=== PATIENT | female | born 1985 | race Caucasian/White ===

== ENCOUNTER 2016-10-19 08:42 | Emergency (ER) | payer OTHER, SELFPAY ==
[2016-10-19] MEDS ORDERED: MORPHINE 4 MG/ML 1ML SYRINGE IV ONE (09:15)
[2016-10-19] MEDS ORDERED: KETOROLAC 30 MG/ML VIAL (J1885) IV ONE (09:15)
[2016-10-19] MEDS ORDERED: MORPHINE 2 MG/ML 1ML SYRINGE IV PRN (09:15)
[2016-10-19] MEDS ORDERED: ONDANSETRON 4MG/2ML VIAL (J2405) IV ONE (09:15)
[2016-10-19] MEDS ORDERED: NS 1,000 ML IV ONE (09:15)
[2016-10-19 09:49] LABS: BASO % 0.3 % (0.0-1.0); EOS # 0.1 K/mm3 (0.0-0.50); EOS % 1.7 % (0.0-3.0); LARGE UNSTAINED CELL # 0.2 K/mm3 (0.0-0.4); LARGE UNSTAINED CELL % 2.9 % (0.0-4.0); LYMPH % 26.9 % (24.0-44.0); MEAN CORPUSCULAR HGB CONC 33.1 g/dl (32.0-36.5); MEAN CORPUSCULAR VOLUME 90.8 fl (80.0-96.0); MONO # 0.6 K/mm3 (0.0-0.8); MONO % 8.7 % (0.0-5.0); NEUTROPHILS % 59.5 % (36.0-66.0); PLATELET COUNT, AUTOMATED 236 k/mm3 (150-450); RED CELL DISTRIBUTION WIDTH 11.8 % (11.5-14.5); WHITE BLOOD COUNT 6.8 K/mm3 (4.0-10.0)
[2016-10-19 10:23] LABS: ALBUMIN 4.2 GM/DL (3.2-5.2); ALKALINE PHOSPHATASE 46 U/L (45-117); ALT/SGPT 23 U/L (12-78); AMYLASE 69 U/L (25-115); ANION GAP 8 MEQ/L (8-16); AST/SGOT 13 U/L (15-37); BILIRUBIN,DIRECT < 0.1 MG/DL (0.0-0.2); BILIRUBIN,TOTAL 0.3 MG/DL (0.2-1.0); BLOOD UREA NITROGEN 16 MG/DL (7-18); CALCIUM LEVEL 8.4 MG/DL (8.5-10.1); CARBON DIOXIDE LEVEL 27 MEQ/L (21-32); CHLORIDE LEVEL 105 MEQ/L (98-107); CREATININE FOR GFR 0.74 MG/DL (0.55-1.02); GLOMERULAR FILTRATION RATE > 60.0 (>60); GLUCOSE, FASTING 90 MG/DL (70-105); POTASSIUM SERUM 3.9 MEQ/L (3.5-5.1); SODIUM LEVEL 140 MEQ/L (136-145); TOTAL PROTEIN 7.7 GM/DL (6.4-8.2)
[2016-10-19 10:27] LABS: CONTROL LINE HCG INT CTR LINE PRESENT
[2016-10-19] MEDS ORDERED: BACTRIM 160MG/800MG DS TAB PO ONE (10:45)
[2016-10-19] MEDS ORDERED: PERCOCET 5MG/325MG TAB PO ONE (10:45)
--- NOTE | 2016-10-19 10:45 | REP ---
CT abdomen pelvis without IV or bowel contrast: Comparison is 11/02/2015. On the comparison study there were three right renal calculi. On the study today there are two right renal calculi. There is mild right hydronephrosis and right hydroureter. There is no right ureteral calculus, however, there is a calculus in the urinary bladder along its posterior wall to the left of midline. This could be a calculus recently passed from the distal right ureter. The remaining mild hydronephrosis could be from spasm of the distal right ureter. There are no left renal calculi are no left ureteral calculi. This is unchanged from the prior study. The visualized lung robertson are unremarkable. The unenhanced hepatic parenchyma, gallbladder, pancreas and spleen are unremarkable. The adrenals are unremarkable. The abdominal aorta, bowel and mesentery are unremarkable. Pelvis: The appendix is unremarkable. Uterus and adnexa are unremarkable except for an IUD within the endometrial canal, unchanged. The adnexa are unremarkable. There is no ascites or adenopathy. The pelvic bowel loops are unremarkable. Impression: There is a bladder calculus as described, likely recently passed from the right ureter. There is mild right hydronephrosis and hydroureter, likely secondary to spasm of the distal ureter secondary to stone passage. Previously there were three right renal calculi. Today there are only two right renal calculi. There are no left renal ureteral calculi. This is unchanged from the prior study. There is an IUD in the uterus, unchanged. The appendix and adnexa are unremarkable. Signed by Hector Ramirez MD 10/19/2016 10:37 A
[2016-10-19] MEDS ORDERED: BACT800T5 PO (10:58)
[2016-10-19] MEDS ORDERED: IBUP600T26 PO (10:59)
[2016-10-19] MEDS ORDERED: NORC1TAB4 PO (10:59)
[2016-10-19 11:13] VITALS: BP 111/69
== END 2016-10-19 11:14 | disposition home or self-care (01) ==
LOC: M ED 09:27
DX: N23 Unspecified renal colic (principal); N39.0 Urinary tract infection, site not specified
CPT/HCPCS: 74176; 80048; 80076; 81001; 81025; 82150; 83690; 84703; 85025; 87088; 87186; 93041; 96374; 96375; 96376; 99284; J1885; J2405

== ENCOUNTER 2016-11-21 14:13 | Emergency (ER) | payer OTHER, SELFPAY ==
[~2016-11-21] VITALS: Ht 177.8 cm; Wt 70.8 kg
[~2016-11-21 14:13] MED LIST: BACT800T5 PO; IBUP600T26 PO; NORC1TAB4 PO
[2016-11-21] MEDS ORDERED: KETOROLAC 30 MG/ML VIAL (J1885) IV ONE (15:45)
[2016-11-21] MEDS ORDERED: ONDANSETRON 4MG/2ML VIAL (J2405) IV ONE (15:45)
[2016-11-21 15:54] LABS: BASO % 0.5 % (0.0-1.0); EOS # 0.1 K/mm3 (0.0-0.50); EOS % 1.5 % (0.0-3.0); LARGE UNSTAINED CELL # 0.2 K/mm3 (0.0-0.4); LYMPH # 2.6 K/mm3 (1.5-4.5); LYMPH % 28.5 % (24.0-44.0); MEAN CORPUSCULAR HEMOGLOBIN 30.9 pg (27.0-33.0); MEAN CORPUSCULAR HGB CONC 34.2 g/dl (32.0-36.5); MEAN CORPUSCULAR VOLUME 90.3 fl (80.0-96.0); MONO # 0.8 K/mm3 (0.0-0.8); NEUTROPHILS % 58.5 % (36.0-66.0); PLATELET COUNT, AUTOMATED 218 k/mm3 (150-450); RED CELL DISTRIBUTION WIDTH 11.7 % (11.5-14.5); WHITE BLOOD COUNT 8.5 K/mm3 (4.0-10.0)
[2016-11-21 16:15] LABS: ALBUMIN 4.6 GM/DL (3.2-5.2); ALBUMIN/GLOBULIN RATIO 1.53 (1.00-1.93); ALKALINE PHOSPHATASE 50 U/L (45-117); ALT/SGPT 22 U/L (12-78); ANION GAP 7 MEQ/L (8-16); AST/SGOT 14 U/L (15-37); BILIRUBIN,TOTAL 0.4 MG/DL (0.2-1.0); BLOOD UREA NITROGEN 11 MG/DL (7-18); CALCIUM LEVEL 8.7 MG/DL (8.5-10.1); CARBON DIOXIDE LEVEL 26 MEQ/L (21-32); CHLORIDE LEVEL 104 MEQ/L (98-107); CREATININE FOR GFR 0.68 MG/DL (0.55-1.02); GLOMERULAR FILTRATION RATE > 60.0 (>60); GLUCOSE, FASTING 80 MG/DL (70-105); POTASSIUM SERUM 3.9 MEQ/L (3.5-5.1); SODIUM LEVEL 137 MEQ/L (136-145); TOTAL PROTEIN 7.6 GM/DL (6.4-8.2)
--- NOTE | 2016-11-21 16:35 | REP ---
CT abdomen pelvis without IV and oral contrast: Comparison is 2016. The patient remains of right flank pain. On the comparison study there were two calcifications in the right kidney and a single calcification in the urinary bladder and mild right hydronephrosis. On the study today the calcification in the urinary bladder is no longer present. There is a single calcification in the right kidney and there is a 9 mm calcification in the distal right ureter in the upper pelvis on the right and right hydroureter and hydronephrosis. There is a single calcification in the right kidney. There are no left renal or ureteral calculi. No bladder calculi. There is an IUD in the uterus as previously. The visualized lung robertson are unremarkable. The unenhanced hepatic parenchyma, gallbladder, pancreas, spleen, adrenals, abdominal aorta, bowel and mesentery are unremarkable and unchanged. Pelvis: The uterus, adnexa and urinary bladder are unremarkable. IUD is again noted as described. There is no adenopathy or ascites. Impression: 9 ml calcification in the distal right ureter in the upper pelvic region. Right hydronephrosis. There is a single calculus remaining in the right kidney. There are no bladder calculi. There are no left renal ureteral calculi. There is an IUD in the pelvis. Signed by Hector Ramirez MD 11/21/2016 04:25 P
[2016-11-21] MEDS ORDERED: ZOFR4TAB3 PO (16:45)
[2016-11-21] MEDS ORDERED: FLOM5CAP PO (16:45)
[2016-11-21] MEDS ORDERED: BACTRIM 160MG/800MG DS TAB PO ONE (16:45)
[2016-11-21] MEDS ORDERED: BACT800T5 PO (16:45)
[2016-11-21] MEDS ORDERED: PERC5TAB6 PO (16:45)
[2016-11-21] MEDS ORDERED: TAMSULOSIN 0.4 MG CAP PO ONE (16:45)
[2016-11-21 16:57] VITALS: BP 111/61
[2016-12-08] MEDS ORDERED: OXYC1TAB23 PO (15:45)
[2016-12-12] MEDS ORDERED: BACT800T5 PO (10:48)
[2016-12-12] MEDS ORDERED: TYLE650T35 PO (10:48)
== END 2016-11-21 17:09 | disposition home or self-care (01) ==
LOC: M ED 15:33
DX: N20.1 Calculus of ureter (principal); N39.0 Urinary tract infection, site not specified; R11.2 Nausea with vomiting, unspecified; R19.7 Diarrhea, unspecified; F17.210 Nicotine dependence, cigarettes, uncomplicated; Z87.442 Personal history of urinary calculi
CPT/HCPCS: 36415; 74176; 80053; 81001; 81025; 83690; 85025; 87088; 87186; 96374; 96375; 99283; J1885; J2405

== ENCOUNTER 2016-11-22 15:43 | Day surgery (SDC) | payer OTHER, SELFPAY ==
[~2016-11-22] VITALS: Ht 172.7 cm; Wt 69.0 kg
[~2016-11-22 15:43] MED LIST changes: +FLOM5CAP PO; +PERC5TAB6 PO; +ZOFR4TAB3 PO
[2016-11-22] MEDS ORDERED: MIDAZOLAM INJ 2 MG/2 ML VIAL (J2250) As Ordered ONE ×2 (15:57→17:01)
[2016-11-22] MEDS ORDERED: PROPOFOL 200 MG/20 ML VIAL As Ordered ONE ×2 (15:57→17:13)
[2016-11-22] MEDS ORDERED: LIDOCAINE 2% INJ 100 MG/5 ML SDV (FOR ANES.) As Ordered ONE (15:57)
[2016-11-22] MEDS ORDERED: fentaNYL 100 MCG/2 ML INJECTION (J3010) As Ordered ONE (15:57)
[2016-11-22 16:20] LABS: MEAN CORPUSCULAR HEMOGLOBIN 31.4 pg (27.0-33.0); MEAN CORPUSCULAR HGB CONC 34.4 g/dl (32.0-36.5); MEAN CORPUSCULAR VOLUME 91.4 fl (80.0-96.0); RED CELL DISTRIBUTION WIDTH 11.9 % (11.5-14.5); WHITE BLOOD COUNT 9.5 K/mm3 (4.0-10.0)
[2016-11-22 16:24] LABS: INR 1.04
[2016-11-22] MEDS ORDERED: LR 1,000 ML IV ONE ×2 (16:30)
[2016-11-22 16:32] LABS: CONTROL LINE HCG INT CTR LINE PRESENT
[2016-11-22 16:37] LABS: ANION GAP 8 MEQ/L (8-16); BLOOD UREA NITROGEN 17 MG/DL (7-18); CALCIUM LEVEL 9.3 MG/DL (8.5-10.1); CARBON DIOXIDE LEVEL 28 MEQ/L (21-32); CHLORIDE LEVEL 103 MEQ/L (98-107); CREATININE FOR GFR 0.84 MG/DL (0.55-1.02); GLOMERULAR FILTRATION RATE > 60.0 (>60); GLUCOSE, FASTING 91 MG/DL (70-105); SODIUM LEVEL 139 MEQ/L (136-145)
[2016-11-22] MEDS ORDERED: CONRAY-60 60% 50ML VIAL (Q9961) As Ordered ONE (16:38)
[2016-11-22] MEDS ORDERED: ceFAZolin 2 GM/D5W 50 ML IV BAG (J0690) As Ordered ONE (16:52)
[2016-11-22] MEDS ORDERED: LIDOCAINE 2% 5ML JELLY UROJET As Ordered ONE (16:59)
[2016-11-22] MEDS ORDERED: ONDANSETRON 4MG/2ML VIAL (J2405) As Ordered ONE (17:00)
[2016-11-22] MEDS ORDERED: METOCLOPRAMIDE INJ 10MG/2ML VIAL (J2765) As Ordered ONE (17:00)
[2016-11-22] MEDS ORDERED: KETOROLAC 60 MG/2 ML VIAL (J1885) As Ordered ONE (17:19)
[2016-11-22] MEDS ORDERED: KCL 20MEQ IN D5/.45NACL 1000ML As Ordered ONE (17:46)
[2016-11-22] MEDS: PERCOCET 5MG/325MG TAB PO PRN (18:00)
[2016-11-22] MEDS ORDERED: PERCOCET 5MG/325MG TAB As Ordered ONE (18:04)
[2016-11-22 18:13] LABS: MEAN CORPUSCULAR HEMOGLOBIN 30.7 pg (27.0-33.0); MEAN CORPUSCULAR HGB CONC 33.5 g/dl (32.0-36.5); MEAN CORPUSCULAR VOLUME 91.8 fl (80.0-96.0); RED CELL DISTRIBUTION WIDTH 11.9 % (11.5-14.5); WHITE BLOOD COUNT 7.7 K/mm3 (4.0-10.0)
[2016-11-22] MEDS ORDERED: ONDANSETRON 4MG/2ML VIAL (J2405) IV PRN ×2 (18:15)
[2016-11-22] MEDS ORDERED: LR 1,000 ML IV SCH (18:15)
[2016-11-22] MEDS ORDERED: METOCLOPRAMIDE INJ 10MG/2ML VIAL (J2765) IV PRN (18:15)
[2016-11-22] MEDS ORDERED: fentaNYL 100 MCG/2 ML INJECTION (J3010) IV PRN (18:15)
[2016-11-22] MEDS ORDERED: MORPHINE 4 MG/ML 1ML SYRINGE IV PRN (18:15)
[2016-11-22 18:20] VITALS: BP 139/72
[2016-11-22 18:24] LABS: ANION GAP 6 MEQ/L (8-16); BLOOD UREA NITROGEN 15 MG/DL (7-18); CALCIUM LEVEL 8.6 MG/DL (8.5-10.1); CARBON DIOXIDE LEVEL 27 MEQ/L (21-32); CHLORIDE LEVEL 105 MEQ/L (98-107); CREATININE FOR GFR 0.79 MG/DL (0.55-1.02); GLOMERULAR FILTRATION RATE > 60.0 (>60); GLUCOSE, FASTING 88 MG/DL (70-105); SODIUM LEVEL 138 MEQ/L (136-145)
[2016-11-22] MEDS: KETOROLAC 30 MG/ML VIAL (J1885) IV PRN (19:12)
[2016-11-22 19:50] VITALS: BP 119/56
[2016-11-22] MEDS: KCL 20MEQ IN D5/0.45NS 1000ML 1,000 ML IV SCH (20:25)
[2016-11-22 20:50] VITALS: BP 107/63
[2016-11-22] MEDS ORDERED: BACTRIM 160MG/800MG DS TAB PO SCH (21:00)
[2016-11-22 21:50] VITALS: BP 118/65
[2016-11-22 22:50] VITALS: BP 127/58
[2016-11-23 02:50] VITALS: BP 98/51
[2016-11-23] MEDS: PERCOCET 5MG/325MG TAB PO PRN ×2 (04:03→10:20)
[2016-11-23] MEDS: KCL 20MEQ IN D5/0.45NS 1000ML 1,000 ML IV SCH (04:03)
[2016-11-23 06:00] VITALS: BP 113/72
[2016-11-23 07:28] LABS: MEAN CORPUSCULAR HEMOGLOBIN 30.7 pg (27.0-33.0); MEAN CORPUSCULAR HGB CONC 33.7 g/dl (32.0-36.5); RED CELL DISTRIBUTION WIDTH 11.8 % (11.5-14.5); WHITE BLOOD COUNT 7.7 K/mm3 (4.0-10.0)
[2016-11-23] MEDS ORDERED: KEFL500C7 PO (07:36)
[2016-11-23] MEDS ORDERED: PERCOCET PO (07:36)
[2016-11-23 07:46] LABS: ANION GAP 7 MEQ/L (8-16); BLOOD UREA NITROGEN 13 MG/DL (7-18); CALCIUM LEVEL 8.4 MG/DL (8.5-10.1); CARBON DIOXIDE LEVEL 25 MEQ/L (21-32); CHLORIDE LEVEL 106 MEQ/L (98-107); CREATININE FOR GFR 0.72 MG/DL (0.55-1.02); GLOMERULAR FILTRATION RATE > 60.0 (>60); GLUCOSE, FASTING 92 MG/DL (70-105); POTASSIUM SERUM 4.4 MEQ/L (3.5-5.1); SODIUM LEVEL 138 MEQ/L (136-145)
[2016-11-23] MEDS: KETOROLAC 30 MG/ML VIAL (J1885) IV PRN (08:47)
[2016-11-23] MEDS ORDERED: PANTOPRAZOLE 40MG INJ (PROTONIX) (C9113) IV SCH (09:00)
[2016-11-23] MEDS ORDERED: CEPHALEXIN 500 MG CAP PO ONE (09:00)
--- NOTE | 2016-11-23 09:02 | REP ---
Retrograde pyelogram: Single view. History: Right kidney stone. 13 seconds of fluoroscopy time is reported. Findings: A single fluoroscopically obtained intraprocedural last image hold spot radiograph of the right abdomen documents contrast injection and double pigtail ureteral stent placement on the right. An IUD is seen. Signed by Rl King MD 11/23/2016 12:37 P
--- NOTE | 2016-11-23 09:42 | RO ---
DATE OF PROCEDURE: 11/22/2016 PREPROCEDURE DIAGNOSIS: Right hydronephrosis and right ureteral stone. POSTPROCEDURE DIAGNOSIS: Right hydronephrosis and right ureteral stone. PROCEDURE: Cystoscopy plus right retrograde pyelogram plus right double J stent placement. SURGEON: Dr. Eliel Velasquez. COMMUNITY PRODUCT SPECIALIST: None. ANESTHESIA: Monitored anesthesia care, (MAC). COMPLICATIONS: None. ESTIMATED BLOOD LOSS: N/A. HISTORY OF PRESENT ILLNESS: 31-year-old female patient with severe right flank pain, right hydronephrosis and right distal ureteral stone about 9 mm in diameter. The patient cannot tolerate the pain. For this reason, she was seen in the clinic and sent as an emergency for a cystoscopy, right retrograde pyelogram plus right double J stent placement, #6-[place] Cook. She consented for the procedure. DESCRIPTION OF PROCEDURE: With the patient under general anesthesia in supine modified low lithotomy position, after prepping and draping the area of concern, which included the entire genitalia and abdomen, we started by introducing a cystoscopy, 21-Swedish in diameter with a 30-degree lens under videoscopic guidance. The urethra and bladder neck was totally normal. The bladder had no tumors. No stones. No foreign objects. Both ureteral orifices were seen. The right ureteral orifice was catheterized with a #5-Swedish Pollack catheter and right retrograde pyelogram was performed. You could evidenced the stone of 9 mm in the distal ureter and a severe hydroureteronephrosis on the right side. For this reason, we passed a Sensor guidewire up to the kidney and then loaded a right double J stent up to the kidney. Once the stent was on good position, we took the guidewire out. We could seen the curl in the kidney and the curl in the bladder draining, very well, the right kidney. We then emptied the bladder and took the cystoscope out. PLAN: The patient will stay overnight as the same day surgery under 23-hour observation to actually see how she reacts since she has been in very severe dehydration and has severe pain. We will control her pain with IV pain medications, hydrate her and if tomorrow, she is doing well, we will discharge her with antibiotics and pain medication for followup at [facility] [place] for definitive therapy of the right ureteral stone. There were no complications during surgery.
--- NOTE | 2016-11-23 09:58 | DSES ---
DATE OF ADMISSION: 11/22/2016 DATE OF DISCHARGE: 11/23/2016 ADMISSION DIAGNOSES: 1. Right hydronephrosis. 2. Right ureteral stone. POSTOPERATIVE DIAGNOSES: 1. Right hydronephrosis. 2. Right distal ureteral stone. FINDINGS: Right distal ureteral stone about 9 mm in diameter. SURGERY PERFORMED: Cystoscopy plus right retrograde pyelogram plus right double J stent placement, #6-[place] Cook. SURGEON: Dr. Eliel Velasquez ADMITTING SURGEON: Dr. Eliel Velasquez DISCHARGE SURGEON: Dr. Eliel Velasquez COMPLICATIONS: None. HISTORY OF PRESENT ILLNESS: This is a 31-year-old female patient that actually came to the clinic in [facility] due to nausea, vomiting, severe dehydration, right flank pain, and a stone that was lodged in the distal ureter causing right hydronephrosis. The pain has been there for at least 72 hours without diminishing with narcotics. For this reason, the patient consented for a cystoscopy plus right retrograde pyelogram plus right double J stent placement. We performed this procedure as an emergency, and she was taken to the operating room (OR). This procedure was performed on 11/22/2016 without complications. HOSPITALIZATION COURSE: The patient did very well. On postoperative day #1, she was tolerating pain with oral pain medication. No nausea. No vomiting. Urinating very well. The urine cultures came back positive, and we changed the antibiotics for Keflex 500 mg one tablet by mouth every 8 hours for 10 days. She will go home with this medication for 10 days and also Percocet 5/325 mg one tablet by mouth every 6 hours as needed for pain. She will increase her water intake for 2 liters a day. She will followup in [facility] in 1-2 weeks for formal treatment of her right distal ureteral stone. There were no complications during surgery or hospitalization. Edited: [facility] 11/24/2016 [id number]
== END 2016-11-23 10:34 | disposition home or self-care (01) ==
LOC: M SDC 15:43 → M MS5PR 18:10 → M SDC 11-23 10:34
PROVIDERS: ATTEND Urology
DX: N13.2 Hydronephrosis with renal and ureteral calculous obstruction (principal); F17.290 Nicotine dependence, other tobacco product, uncomplicated; N39.0 Urinary tract infection, site not specified; R11.10 Vomiting, unspecified; Z88.1 Allergy status to other antibiotic agents; Z91.040 Latex allergy status; Z79.899 Other long term (current) drug therapy
CPT/HCPCS: 36415; 52332; 74420; 80048; 84703; 85027; 85610; 85730; C1726; C2617; C9113; J0690; J1885; J2250; J2405; J2765; J3010; Q9961

== ENCOUNTER → 2016-12-06 | Outpatient (REF) | payer OTHER, SELFPAY ==
[~2016-12-06] MED LIST changes: +KEFL500C7 PO; +OXYC1TAB23 PO; +PERCOCET PO; +TYLE650T35 PO
== END ==
LOC: M LAB REF 08:36
PROVIDERS: ATTEND Nurse Practitioner Women's Health
DX: N13.2 Hydronephrosis with renal and ureteral calculous obstruction (principal)

== ENCOUNTER → 2016-12-08 | Outpatient (CLI) | payer OTHER ==
[2016-12-08 13:00] LABS: MEAN CORPUSCULAR HEMOGLOBIN 30.5 pg (27.0-33.0); MEAN CORPUSCULAR HGB CONC 33.8 g/dl (32.0-36.5); MEAN CORPUSCULAR VOLUME 90.2 fl (80.0-96.0); RED CELL DISTRIBUTION WIDTH 11.8 % (11.5-14.5)
[2016-12-08 13:06] LABS: INR 1.12
[2016-12-08 13:32] LABS: ANION GAP 5 MEQ/L (8-16); BLOOD UREA NITROGEN 16 MG/DL (7-18); CALCIUM LEVEL 9.3 MG/DL (8.5-10.1); CARBON DIOXIDE LEVEL 29 MEQ/L (21-32); CHLORIDE LEVEL 105 MEQ/L (98-107); CREATININE FOR GFR 0.74 MG/DL (0.55-1.02); GLOMERULAR FILTRATION RATE > 60.0 (>60); GLUCOSE, FASTING 94 MG/DL (70-105); POTASSIUM SERUM 4.5 MEQ/L (3.5-5.1); SODIUM LEVEL 139 MEQ/L (136-145)
== END ==
LOC: M SMT 09:11
PROVIDERS: ATTEND Nurse Practitioner Women's Health
DX: Z01.818 Encounter for other preprocedural examination (principal); N13.2 Hydronephrosis with renal and ureteral calculous obstruction

== ENCOUNTER → 2016-12-12 | Day surgery (SDC) | payer OTHER ==
[~2016-12-12] VITALS: Ht 174 cm; Wt 70.8 kg
[~2016-12-12] MED LIST changes: +ACETAMINOPHEN 650MG ER TAB (TYLENOL ARTHRITIS) PO SCH; +BACTRIM 160MG/800MG DS TAB PO SCH; +CONRAY-60 60% 50ML VIAL (Q9961) As Ordered ONE; +KETOROLAC 60 MG/2 ML VIAL (J1885) As Ordered ONE; +LIDOCAINE 2% INJ 100 MG/5 ML SDV (FOR ANES.) As Ordered ONE; +LR 1,000 ML IV ONE; +LR 1,000 ML IV SCH; +MIDAZOLAM INJ 2 MG/2 ML VIAL (J2250) As Ordered ONE; +ONDANSETRON 4MG/2ML VIAL (J2405) As Ordered ONE; +ONDANSETRON 4MG/2ML VIAL (J2405) IV PRN; +PERCOCET 5MG/325MG TAB As Ordered ONE; +PERCOCET 5MG/325MG TAB PO PRN; +PROPOFOL 200 MG/20 ML VIAL As Ordered ONE; +dexameTHASONE 4 MG/ML 1ML VIAL (J1100) As Ordered ONE; +fentaNYL 100 MCG/2 ML INJECTION (J3010) As Ordered ONE; +fentaNYL 250 MCG/5 ML INJECTION (J3010) As Ordered ONE
[2016-12-12 08:42] LABS: CONTROL LINE HCG INT CTR LINE PRESENT
--- NOTE | 2016-12-12 11:01 | REP ---
C-ARM VIEW ABDOMEN: C-arm view of the abdomen is performed. An IUD is seen centrally in the pelvis. Previously noted right ureteral stent has been removed. 5 seconds of fluoroscopy time utilized. Signed by Hetcor Gusman MD 12/12/2016 01:48 P
[2016-12-12] MEDS: fentaNYL 100 MCG/2 ML INJECTION (J3010) IV PRN ×2 (11:14→11:20)
[2016-12-12 12:05] VITALS: BP 113/73
--- NOTE | 2016-12-13 16:49 | RO ---
DATE OF PROCEDURE: 12/12/2016 PREPROCEDURE DIAGNOSIS: Right ureteral stone. POSTPROCEDURE DIAGNOSIS: Right ureteral stone and right kidney stone of about 3 mm. The ureteral stone is about 8 mm. FINDINGS: Right ureteral stone, 8 mm and right lower pole kidney stone, 3 mm. PROCEDURE: Cystoscopy, right retrograde pyelogram, right ureteroscopy, right basket extraction of stone, removal of right double J stent. SURGEON: Dr. Eliel Velasquez IMAGING ADMINISTRATOR: None. ANESTHESIA: General. COMPLICATIONS: None. ESTIMATED BLOOD LOSS: N/A. HISTORY OF THE PRESENT ILLNESS: 31-year-old female patient that has a right double J stent in good position. She has a right distal ureteral stone and a lower pole kidney stone also. For this reason, she has consented for a cystoscopy, right retrograde pyelogram, right ureteroscopy, possible laser stone lithotripsy, possible right basket extraction of stones, plus right double J stent exchange. DESCRIPTION OF PROCEDURE: With the patient under general anesthesia in a supine modified low lithotomy position, after prepping and draping the area of concern, which included the entire genitalia and abdomen, we started by introducing a cystoscope, #21-Sami with a 30 degrees lens under videoscopic guidance. The urethra and bladder neck were totally normal. The bladder had a right double J stent in good position. We then proceeded to actually grab the stent it and pull it out of the urethra. We cut the distal end of the stent and passed the guidewire through up to the kidney and removed the old double J stent. We then proceeded to pass a semi-rigid ureteroscope outside to the guidewire into the ureter. We found the stone. The stone was found very easily. With a Zero Tip basket we grabbed the stone and pulled it out of the body of the patient. We then loaded a flexible ureteroscope parallel to the guidewire up to the kidney. We did a formal nephroscopy with flexible ureteroscope, upper pole, mid pole and lower pole. We found a 3 mm stone in the lower pole. With a basket we grabbed the stone and pulled it out of the body of the patient. Since extraction of stones were uneventful and her ureter was very thick and wide open, we decided to actually not leave a double J stent and remove the guidewire. We then emptied the bladder and the patient will pass through recovery and then be sent home with antibiotics and pain medication. Followup is at [facility] in about 1 to 2 weeks. She has not stents at this moment and the stones are gone and were sent for biochemical analysis.
== END | disposition home or self-care (01) ==
LOC: M SDC 07:43
PROVIDERS: ATTEND Urology
DX: N20.2 Calculus of kidney with calculus of ureter (principal); G43.909 Migraine, unspecified, not intractable, without status migrainosus; Z88.0 Allergy status to penicillin; Z88.1 Allergy status to other antibiotic agents; Z91.040 Latex allergy status; Z72.0 Tobacco use
CPT/HCPCS: 36415; 52352; 74420; 82360; 84703; 88300; C2617; J0690; J1100; J1885; J2250; J2405; J3010; Q9961

== ENCOUNTER 2017-01-29 10:14 | Emergency (ER) | payer MEDICAID, OTHER, SELFPAY ==
[~2017-01-29] VITALS: Ht 172.7 cm; Wt 68.2 kg
[~2017-01-29 10:14] MED LIST changes: -ACETAMINOPHEN 650MG ER TAB (TYLENOL ARTHRITIS) PO SCH; -BACTRIM 160MG/800MG DS TAB PO SCH; -CONRAY-60 60% 50ML VIAL (Q9961) As Ordered ONE; +IBUP-1022 PO; -IBUP600T26 PO; +KEFL500C17 PO; -KEFL500C7 PO; -KETOROLAC 60 MG/2 ML VIAL (J1885) As Ordered ONE; -LIDOCAINE 2% INJ 100 MG/5 ML SDV (FOR ANES.) As Ordered ONE; -LR 1,000 ML IV ONE; -LR 1,000 ML IV SCH; -MIDAZOLAM INJ 2 MG/2 ML VIAL (J2250) As Ordered ONE; -ONDANSETRON 4MG/2ML VIAL (J2405) As Ordered ONE; -ONDANSETRON 4MG/2ML VIAL (J2405) IV PRN; +PERC5TAB12 PO; -PERC5TAB6 PO; -PERCOCET 5MG/325MG TAB As Ordered ONE; -PERCOCET 5MG/325MG TAB PO PRN; -PROPOFOL 200 MG/20 ML VIAL As Ordered ONE; -dexameTHASONE 4 MG/ML 1ML VIAL (J1100) As Ordered ONE; -fentaNYL 100 MCG/2 ML INJECTION (J3010) As Ordered ONE; -fentaNYL 250 MCG/5 ML INJECTION (J3010) As Ordered ONE
[2017-01-29 10:15] VITALS: BP 128/71
[2017-01-29] MEDS ORDERED: IBUP80TA PO (10:53)
[2017-01-29] MEDS ORDERED: IBUPROFEN 800 MG TAB PO ONE (11:00)
== END 2017-01-29 11:01 | disposition home or self-care (01) ==
LOC: M ED 10:14
DX: G56.02 Carpal tunnel syndrome, left upper limb (principal); Z72.0 Tobacco use

== ENCOUNTER → 2017-03-15 | Outpatient (REF) | payer MEDICAID ==
[~2017-03-15] MED LIST changes: +IBUP80TA PO; +NAPR500T PO
== END ==
LOC: M LAB REF 13:58
PROVIDERS: ATTEND Advanced Practice Midwife
DX: Z12.4 Encounter for screening for malignant neoplasm of cervix (principal); R87.610 Atypical squamous cells of undetermined significance on cytologic smear of cervix (ASC-US)

== ENCOUNTER 2017-03-23 12:23 | Emergency (ER) | payer MEDICAID ==
[~2017-03-23] VITALS: Ht 172.7 cm; Wt 68.2 kg
[~2017-03-23 12:23] MED LIST changes: -NAPR500T PO
[2017-03-23] MEDS ORDERED: NS 1,000 ML IV ONE (12:45)
[2017-03-23] MEDS ORDERED: METOCLOPRAMIDE INJ 10MG/2ML VIAL (J2765) IV ONE (12:45)
[2017-03-23] MEDS ORDERED: KETOROLAC 30 MG/ML VIAL (J1885) IV ONE (12:45)
[2017-03-23 13:39] LABS: CONTROL LINE HCG INT CTR LINE PRESENT
[2017-03-23 13:41] LABS: ANION GAP 4 MEQ/L (8-16); BLOOD UREA NITROGEN 15 MG/DL (7-18); CALCIUM LEVEL 8.8 MG/DL (8.5-10.1); CARBON DIOXIDE LEVEL 28 MEQ/L (21-32); CHLORIDE LEVEL 106 MEQ/L (98-107); CREATININE FOR GFR 0.61 MG/DL (0.55-1.02); GLOMERULAR FILTRATION RATE > 60.0 (>60); GLUCOSE, FASTING 90 MG/DL (70-105); POTASSIUM SERUM 3.7 MEQ/L (3.5-5.1); SODIUM LEVEL 138 MEQ/L (136-145)
[2017-03-23 13:51] LABS: BASO % 0.4 % (0.0-1.0); EOS # 0.1 K/mm3 (0.0-0.50); EOS % 1.8 % (0.0-3.0); LARGE UNSTAINED CELL # 0.2 K/mm3 (0.0-0.4); LARGE UNSTAINED CELL % 4.2 % (0.0-4.0); LYMPH # 1.5 K/mm3 (1.5-4.5); MEAN CORPUSCULAR HEMOGLOBIN 31.3 pg (27.0-33.0); MEAN CORPUSCULAR HGB CONC 35.1 g/dl (32.0-36.5); MEAN CORPUSCULAR VOLUME 89.2 fl (80.0-96.0); MONO # 0.5 K/mm3 (0.0-0.8); MONO % 8.7 % (0.0-5.0); NEUTROPHILS # 3.2 K/mm3 (1.8-7.7); NEUTROPHILS % 57.9 % (36.0-66.0); PLATELET COUNT, AUTOMATED 221 k/mm3 (150-450); RED CELL DISTRIBUTION WIDTH 11.4 % (11.5-14.5); WHITE BLOOD COUNT 5.5 K/mm3 (4.0-10.0)
--- NOTE | 2017-03-23 14:11 | REP ---
CT BRAIN WITHOUT IV CONTRAST: CT brain is performed without IV contrast. Ventricles are normal in size and position. There is no midline shift. No abnormal densities are seen. Gusman-white differentiation is well maintained. There is no acute hemorrhage. There is no extra-axial fluid collection. Bone window examination is unremarkable. IMPRESSION: Negative noncontrast CT brain. Signed by Hector Gusman MD 03/23/2017 02:27 P
[2017-03-23 14:12] LABS: ERYTHROCYTE SEDIMENTATION RATE 7 mm/hr (0-20)
[2017-03-23] MEDS ORDERED: diphenhydrAMINE INJ 50MG/ML VIAL (J1200) IV STA (14:18)
[2017-03-23] MEDS ORDERED: methylPREDNISolone INJ 125 MG/2 ML VIAL (J2930) IV ONE (14:30)
[2017-03-23] MEDS ORDERED: NAPR500T PO (15:04)
[2017-03-23] MEDS ORDERED: ZOFR4TAB3 PO (15:04)
[2017-03-23 15:14] VITALS: BP 119/73
== END 2017-03-23 15:16 | disposition home or self-care (01) ==
LOC: M ED 12:23
DX: G43.909 Migraine, unspecified, not intractable, without status migrainosus (principal); Z88.0 Allergy status to penicillin; Z88.1 Allergy status to other antibiotic agents; Z91.040 Latex allergy status; Z87.891 Personal history of nicotine dependence
CPT/HCPCS: 70450; 80048; 84703; 85025; 85652; 96374; 96375; 99283; J1200; J1885; J2765; J2930

== ENCOUNTER → 2017-05-11 | Outpatient (CLI) | payer MEDICAID ==
[~2017-05-11] MED LIST changes: +NAPR500T PO
--- NOTE | 2017-05-11 17:24 | REP ---
Digital diagnostic unilateral left breast mammography with CAD and focused left breast sonography: History: Left breast lump upper outer quadrant. Present times one and half weeks. Strongly positive family history breast carcinoma. According to the patient, there is BRCA positivity in the patient's mother with breast cancer diagnosed at age 34. The patient herself reports that she was tested and is negative. There is a comparison left breast mammography from August 08, 2010 with a skin marker positioned in the upper outer quadrant of the left breast apparently related to a lump at that time. Mammographic findings: A skin marker is affixed to the site of the palpable of the left breast and routine views of the left breast are augmented by magnified focal spot compression CC true MLO and MLO view. These demonstrate extremely dense breast parenchyma in a matter which would inhibit the sensitivity of mammography. There is a subtle suggestion of architectural distortion in the upper outer quadrant of the left breast underlying the skin marker. No clear mammographic target is seen. No mass or worrisome skin change is seen. No microcalcification is observed. No other mammographic findings. The appearance the breast parenchyma in the region of the palpable lump is quite similar when compared with the August 2010 prior study. Sonographic findings: The left breast is scanned from 12 o'clock to 2 o'clock with the palpable lump noted at 1 o'clock. A band of heterogeneous fibroglandular background echotexture is seen with focally slightly dilated ducts in the retroareolar region and 2 o'clock. No mass or acoustic shadowing is seen. No architectural distortion is seen by ultrasound. No cyst is observed. Impression: BIRADS category zero incomplete. Additional imaging and/or prior images needed. Equivocal mammographic and sonographic findings. Question of subtle architectural distortion upper outer quadrant left breast. This is the area of palpable lump. If palpation directed biopsy is not performed, I would recommend bilateral breast MRI scanning. BI-RADS/ACR category 0 mammogram, incomplete. Additional imaging and/or prior mammograms for comparison. The patient's [facility] risk assessment risk of breast cancer score is 39.4% although this is undoubtedly mediated by the patient's history of having been tested negative for the BRCA gene. This mammogram was interpreted with the aid of an FDA-approved computer-aided detection system. The patient states she had a clinical breast exam in May 21, 2017 The patient letter being requested is M0 dense. Signed by Rl King MD 05/11/2017 05:36 P
== END ==
LOC: M RAD 14:39
PROVIDERS: ATTEND Advanced Practice Midwife
DX: N63.21 Unspecified lump in the left breast, upper outer quadrant (principal)
CPT/HCPCS: 76642; G0206

== ENCOUNTER → 2017-11-05 | Outpatient (REF) | payer MEDICAID ==
[2017-11-05 14:12] LABS: BASO % 0.7 % (0.0-1.0); EOS # 0.1 10^3/uL (0.0-0.50); EOS % 0.9 % (0.0-3.0); HEMATOCRIT 39.4 % (36.0-47.0); HEMOGLOBIN 13.1 g/dl (12.0-15.5); IMMATURE GRANULOCYTE % 0.3 % (0-3.0); LYMPH # 2.1 10^3/uL (1.5-4.5); LYMPH % 35.4 % (24.0-44.0); MEAN CORPUSCULAR HEMOGLOBIN 29.4 pg (27.0-33.0); MEAN CORPUSCULAR HGB CONC 33.2 g/dl (32.0-36.5); MEAN CORPUSCULAR VOLUME 88.3 fl (80.0-96.0); MONO # 0.7 10^3/uL (0.0-0.8); MONO % 12.3 % (0.0-5.0); NEUTROPHILS # 2.9 10^3/uL (1.8-7.7); NEUTROPHILS % 50.4 % (36.0-66.0); PLATELET COUNT, AUTOMATED 223 10^3/uL (150-450); RED BLOOD COUNT 4.46 10^6/uL (4.00-5.40); RED CELL DISTRIBUTION WIDTH 11.9 % (11.5-14.5); WHITE BLOOD COUNT 5.8 10^3/uL (4.0-10.0)
[2017-11-05 14:25] LABS: ALBUMIN 4.3 GM/DL (3.2-5.2); ALBUMIN/GLOBULIN RATIO 1.34 (1.00-1.93); ALKALINE PHOSPHATASE 44 U/L (45-117); ALT/SGPT 26 U/L (12-78); ANION GAP 6 MEQ/L (8-16); AST/SGOT 51 U/L (7-37); BILIRUBIN,TOTAL 0.4 MG/DL (0.2-1.0); BLOOD UREA NITROGEN 15 MG/DL (7-18); CARBON DIOXIDE LEVEL 26 MEQ/L (21-32); CHLORIDE LEVEL 109 MEQ/L (98-107); CHOLESTEROL LEVEL 197 MG/DL (<200); CHOLESTEROL RISK RATIO 3.338 (<5); CREATININE FOR GFR 0.71 MG/DL (0.55-1.30); GLOMERULAR FILTRATION RATE > 60.0 (>60); GLUCOSE, FASTING 90 MG/DL (70-100); HDL CHOLESTEROL 59 MG/DL (>40); LDL CHOLESTEROL 127.8 MG/DL (<100); NON-HDL-C 138 MG/DL; POTASSIUM SERUM 4.4 MEQ/L (3.5-5.1); SODIUM LEVEL 141 MEQ/L (136-145); TOTAL PROTEIN 7.5 GM/DL (6.4-8.2); TRIGLYCERIDES LEVEL 51 MG/DL (<150)
== END ==
LOC: M SFHCPLAZ 10:59
DX: F41.9 Anxiety disorder, unspecified (principal); Z13.220 Encounter for screening for lipoid disorders

== ENCOUNTER → 2018-03-08 | Outpatient (REF) | payer OTHER, MEDICAID | LOC: M SFHCPLAZ 12:08 | DX: L70.0 Acne vulgaris (principal) | CPT/HCPCS: 87081 ==

== ENCOUNTER → 2018-09-16 | Outpatient (CLI) | payer OTHER ==
[~2018-09-16] MED LIST changes: +FLOM0.4C39 PO; -FLOM5CAP PO; +NAPR-50 PO; -NAPR500T PO; +ZOFR4TAB14 PO; -ZOFR4TAB3 PO
--- NOTE | 2018-09-17 03:50 | REP ---
Clinical: Cough . Comparison: None . Technique: PA and lateral. Findings: The mediastinum and cardiac silhouette are normal. The lung robertson are clear and without acute consolidation, effusion, or pneumothorax. The skeletal structures are intact and normal. Impression: 1. No acute cardiopulmonary process. Electronically Signed by Americo Sherman MD 09/17/2018 03:42 A
== END ==
LOC: M SMT 14:21
PROVIDERS: ATTEND Nurse Practitioner Family
DX: R05 Cough (principal)

== ENCOUNTER → 2018-12-14 | Outpatient (CLI) | payer OTHER ==
[~2018-12-14] MED LIST changes: -NAPR-50 PO; +NAPR-837 PO; -NORC1TAB4 PO; +NORC1TAB7 PO
[2018-12-14 18:12] LABS: BASO # 0.1 10^3/uL (0.0-0.2); EOS # 0.2 10^3/uL (0.0-0.50); EOS % 2.7 % (0.0-3.0); HEMATOCRIT 43.9 % (36.0-47.0); HEMOGLOBIN 14.2 g/dl (12.0-15.5); LYMPH # 1.9 10^3/uL (1.5-4.5); LYMPH % 32.5 % (24.0-44.0); MEAN CORPUSCULAR HEMOGLOBIN 30.4 pg (27.0-33.0); MEAN CORPUSCULAR HGB CONC 32.3 g/dl (32.0-36.5); MONO # 0.8 10^3/uL (0.0-0.8); MONO % 14.2 % (0.0-5.0); NEUTROPHILS # 2.9 10^3/uL (1.8-7.7); NEUTROPHILS % 49.4 % (36.0-66.0); PLATELET COUNT, AUTOMATED 242 10^3/uL (150-450); RED BLOOD COUNT 4.67 10^6/uL (4.00-5.40); WHITE BLOOD COUNT 5.8 10^3/uL (4.0-10.0)
[2018-12-14 18:14] LABS: ALT/SGPT 26 U/L (12-78); BILIRUBIN,TOTAL 0.3 MG/DL (0.2-1.0); BLOOD UREA NITROGEN 15 MG/DL (7-18); CALCIUM LEVEL 8.8 MG/DL (8.5-10.1); CARBON DIOXIDE LEVEL 26 MEQ/L (21-32); CHLORIDE LEVEL 108 MEQ/L (98-107); CHOLESTEROL LEVEL 191 MG/DL (<200); CHOLESTEROL RISK RATIO 3.673 (<5); CREATININE FOR GFR 0.66 MG/DL (0.55-1.30); GLOMERULAR FILTRATION RATE > 60.0 (>60); GLUCOSE, FASTING 86 MG/DL (70-100); HDL CHOLESTEROL 52 MG/DL (>40); LDL CHOLESTEROL 117 MG/DL (<100); NON-HDL-C 139 MG/DL; POTASSIUM SERUM 4.4 MEQ/L (3.5-5.1); SODIUM LEVEL 140 MEQ/L (136-145); TOTAL PROTEIN 7.1 GM/DL (6.4-8.2); TRIGLYCERIDES LEVEL 110 MG/DL (<150)
[2018-12-14 18:46] LABS: HEMOGLOBIN A1c 5.2 %
[2018-12-16 08:43] LABS: TOTAL 25(OH) VITAMIN D 35.6 NG/ML (30.0-100.0)
== END ==
LOC: M WUC 09:20
PROVIDERS: ATTEND Nurse Practitioner Family
DX: E55.9 Vitamin D deficiency, unspecified (principal); E78.5 Hyperlipidemia, unspecified; Z13.228 Encounter for screening for other metabolic disorders

== ENCOUNTER → 2019-07-14 | Outpatient (REF) | payer OTHER | LOC: M SFHCWAGY 10:28 | PROVIDERS: ATTEND Advanced Practice Midwife | DX: Z01.419 Encounter for gynecological examination (general) (routine) without abnormal findings (principal) ==

== ENCOUNTER → 2019-08-19 | Outpatient (REF) | payer OTHER ==
[2019-08-19 17:56] LABS: BASO % 0.4 % (0.0-1.0); EOS # 0.1 10^3/uL (0.0-0.5); EOS % 1.7 % (0.0-3.0); HEMATOCRIT 39.1 % (36.0-47.0); HEMOGLOBIN 12.9 g/dl (12.0-15.5); LYMPH # 1.9 10^3/uL (1.5-5.0); MEAN CORPUSCULAR HEMOGLOBIN 30.4 pg (27.0-33.0); MONO # 0.9 10^3/uL (0.0-0.8); MONO % 11.5 % (0.0-5.0); NEUTROPHILS # 4.7 10^3/uL (1.5-8.5); NEUTROPHILS % 61.1 % (36.0-66.0); PLATELET COUNT, AUTOMATED 246 10^3/uL (150-450); RED BLOOD COUNT 4.25 10^6/uL (4.00-5.40); WHITE BLOOD COUNT 7.8 10^3/uL (4.0-10.0)
[2019-08-19 18:01] LABS: HCG, SERUM QUALITATIVE NEGATIVE (NEGATIVE)
[2019-08-19 18:05] LABS: FREE T4 0.88 NG/DL (0.76-1.46); THYROID STIMULATING HORMONE 0.661 uIU/ML (0.358-3.740)
== END ==
LOC: M SFHCPLAZ 14:05
PROVIDERS: ATTEND Nurse Practitioner Family
DX: R53.83 Other fatigue (principal)

== ENCOUNTER → 2019-10-15 | Outpatient (CLI) | payer OTHER ==
--- NOTE | 2019-10-15 16:46 | REP ---
HISTORY: Right flank pain. COMPARISON: There are no prior renal ultrasound examinations for comparison. FINDINGS: Multiple ultrasonographic images of the right kidney show the right kidney to measure 11.9 x 5.6 x 4.8 cm. The renal cortical echotexture is unremarkable. There are no masses. There is good corticomedullary differentiation. There is no hydronephrosis. There are no perinephric fluid collections. Multiple ultrasonographic images of the left kidney show the left kidney to measure 11.3 x 4.5 x 5.4 cm. The renal cortical echotexture is unremarkable. There are no masses. There is good corticomedullary differentiation. There is no hydronephrosis. There are no perinephric fluid collections. IMPRESSION: Unremarkable renal ultrasonography. Electronically Signed by Cole Hassan DO 10/15/2019 04:50 P
--- NOTE | 2019-10-15 16:49 | REP ---
HISTORY: Pelvic pain. The exam is limited pelvic ultrasound, attention urinary bladder. Pre- and postvoid urinary bladder volume calculations were performed. The prevoid urinary bladder volume calculation is 509 mL and the postvoid calculation is 13.7 cm rendering a 3% postvoid residual. On imaging the urinary bladder, the technologist noted an enlarged or potentially enlarged right ovary. This was seen in a limited fashion due to the limitations of the examination which was ordered. I cannot rule out a right ovarian hemorrhagic cyst. Complete pelvic ultrasonography is recommended. No urinary bladder abnormality was noted. Uro-jet phenomenon was seen bilaterally at the UV junction. Electronically Signed by Cole Hassan DO 10/15/2019 04:53 P
== END ==
LOC: M RAD 15:35
PROVIDERS: ATTEND Family Medicine
DX: Z87.442 Personal history of urinary calculi (principal)

== ENCOUNTER → 2019-10-24 | Outpatient (REF) | payer OTHER ==
[2019-10-24 18:05] LABS: APPEARANCE, URINE CLEAR (CLEAR); BACTERIA, URINE AUTO NEGATIVE (NEGATIVE); BILIRUBIN, URINE AUTO NEGATIVE (NEGATIVE); BLOOD, URINE BLOOD NEGATIVE (NEGATIVE); COLOR, URINE YELLOW (YELLOW); GLUCOSE, URINE (UA) AUTO NEGATIVE (NEGATIVE); KETONE, URINE AUTO NEGATIVE (NEGATIVE); LEUKOCYTE ESTERASE, URINE AUTO NEGATIVE (NEGATIVE); MUCUS, URINE SMALL (NEGATIVE); NITRITE, URINE AUTO NEGATIVE (NEGATIVE); PROTEIN, URINE AUTO NEGATIVE (NEGATIVE); RBC, URINE AUTO 0 /HPF (0-3); SQUAMOUS EPITHELIAL CELL UR AU 1 /HPF (0-6); UROBILINOGEN, URINE AUTO 0.2 mg/dL (0.0-2.0); WBC, URINE AUTO 0 /HPF (0-3)
== END ==
LOC: M SMT 16:42
PROVIDERS: ATTEND Nurse Practitioner Women's Health
DX: R10.9 Unspecified abdominal pain (principal)

== ENCOUNTER → 2020-02-21 | Outpatient (CLI) | payer OTHER ==
[~2020-02-21] MED LIST changes: +ACET650T61 PO; +BCP PO; +CETI10CH PO; +LEXA1TAB PO; -TYLE650T35 PO
== END ==
LOC: M LABSMTC 08:11
PROVIDERS: ATTEND Anesthesiology
DX: Z01.812 Encounter for preprocedural laboratory examination (principal); Z20.828 Contact with and (suspected) exposure to other viral communicable diseases

== ENCOUNTER 2020-02-25 10:54 | Day surgery (SDC) | payer OTHER ==
[~2020-02-25] VITALS: Ht 172.7 cm; Wt 77.9 kg
[~2020-02-25 10:54] MED LIST changes: -CETI10CH PO; -LEXA1TAB PO; +LIDOCAINE 1% MDV 20ML VIAL SQ PRN
[2020-02-25] MEDS ORDERED: CETI10CH PO (11:24)
[2020-02-25] MEDS ORDERED: LEXA1TAB PO (11:24)
[2020-02-25] MEDS ORDERED: LR 1,000 ML IV ONE (11:30)
[2020-02-25 11:56] LABS: HEMATOCRIT 41.8 % (36.0-47.0); HEMOGLOBIN 13.9 g/dl (12.0-15.5); MEAN CORPUSCULAR HEMOGLOBIN 30.2 pg (27.0-33.0); MEAN CORPUSCULAR HGB CONC 33.3 g/dl (32.0-36.5); MEAN CORPUSCULAR VOLUME 90.9 fl (80.0-96.0); PLATELET COUNT, AUTOMATED 229 10^3/uL (150-450); WHITE BLOOD COUNT 7.8 10^3/uL (4.0-10.0)
[2020-02-25] MEDS ORDERED: BUPIVACAINE HCL 0.25% 10ML VIAL As Ordered ONE (12:13)
[2020-02-25] MEDS ORDERED: dexameTHASONE 4 MG/ML 1ML VIAL (J1100 PER 1MG) As Ordered ONE (12:47)
[2020-02-25] MEDS ORDERED: KETOROLAC 60MG 2ML VIAL As Ordered ONE (12:47)
[2020-02-25] MEDS ORDERED: SUGAMMADEX SODIUM 500 MG/5 ML VIAL (BRIDION) As Ordered ONE (12:47)
[2020-02-25] MEDS ORDERED: ONDANSETRON 4MG/2ML VIAL As Ordered ONE ×2 (12:47→13:15)
[2020-02-25] MEDS ORDERED: propofoL 200 MG/20 ML VIAL As Ordered ONE (12:47)
[2020-02-25] MEDS ORDERED: MIDAZOLAM INJ 2MG/2ML VIAL (J2250 PER 1MG) As Ordered ONE (12:47)
[2020-02-25] MEDS ORDERED: HYDROmorphone HCL 2 MG/ML 1ML VIAL (J1170) As Ordered ONE (12:47)
[2020-02-25] MEDS ORDERED: fentaNYL 100 MCG/2 ML INJECTION (J3010) As Ordered ONE (12:47)
[2020-02-25] MEDS ORDERED: ROCURONIUM BROMIDE 50 MG/5 ML VIAL As Ordered ONE (12:47)
[2020-02-25] MEDS ORDERED: LIDOCAINE 2% 100MG/5ML SDV (FOR ANES.) As Ordered ONE (12:47)
[2020-02-25] MEDS ORDERED: fentaNYL 100 MCG/2 ML INJECTION (J3010) IV PRN (13:30)
[2020-02-25] MEDS ORDERED: oxyCODONE 5MG TAB PO PRN (13:30)
[2020-02-25] MEDS ORDERED: HYDROMORPHONE HCL 0.5 MG/ 0.5 ML SYRINGE (J1170 PER 1) IV PRN (13:30)
[2020-02-25] MEDS ORDERED: LR 1,000 ML IV SCH ×2 (13:30→15:00)
[2020-02-25] MEDS ORDERED: ONDANSETRON 4MG/2ML VIAL IV PRN (13:30)
[2020-02-25 14:20] VITALS: BP 103/70
[2020-02-25] MEDS ORDERED: ACETAMINOPHEN 500 MG TAB As Ordered ONE (14:27)
[2020-02-25] MEDS ORDERED: PERCOCET 5MG/325MG TAB PO PRN (15:00)
[2020-02-25] MEDS ORDERED: ACETAMINOPHEN 500 MG TAB PO ONE (15:00)
--- NOTE | 2020-04-08 11:51 | RO ---
DATE OF OPERATION: 02/25/2020. PREOPERATIVE DIAGNOSIS: Undesired fertility. POSTOPERATIVE DIAGNOSIS: Undesired fertility. PROCEDURE: Laparoscopic bilateral salpingectomy. SURGEON: Cash Toth MD ANESTHESIA: General endotracheal. ESTIMATED BLOOD LOSS: 10 cc. FINDINGS: Normal pelvis including uterus, fallopian tubes, and ovaries. Normal upper abdomen. DESCRIPTION OF PROCEDURE: The patient was taken to the operating room where general endotracheal anesthesia was induced. She was prepped and draped in sterile fashion in the dorsolithotomy position. A sponge stick was placed in the vagina to use as a manipulator. A periumbilical incision was made with a scalpel. A Veress needle was placed through the incision. Intraabdominal location of the Veress needle was assessed with the use of a saline-filled syringe. A pneumoperitoneum was created. The Veress needle was removed. A 5-mm trocar using [employer]iPort was inserted through the incision. A 5 and 8-mm suprapubic port was placed under direct visualization and without difficulty. Attention was turned to the fallopian tubes. The fallopian tubes were grasped at their ends with grasping instrument and elevated. LigaSure device was used to coagulate and incise broad ligament attachments to the tubes. The tubes were then amputated near their origin. Both tubes were removed through the suprapubic ports. The pneumoperitoneum was released. All instruments were removed. Sponge, instrument, and needle counts were correct. The skin was closed with 4-0 Monocryl subcuticular sutures. [facility]
== END 2020-02-25 14:50 | disposition home or self-care (01) ==
LOC: M SDC 10:54
PROVIDERS: ATTEND Specialist
DX: Z30.2 Encounter for sterilization (principal); G43.909 Migraine, unspecified, not intractable, without status migrainosus; Z79.899 Other long term (current) drug therapy; Z91.040 Latex allergy status; Z88.0 Allergy status to penicillin; Z88.1 Allergy status to other antibiotic agents
CPT/HCPCS: 58661; 81025; 85027; 88302; J1100; J1170; J1885; J2250; J2405; J3010

== ENCOUNTER → 2020-06-02 | Outpatient (REF) | payer OTHER ==
[~2020-06-02] MED LIST changes: +CETI10CH PO; +LEXA1TAB PO; -LIDOCAINE 1% MDV 20ML VIAL SQ PRN
[2020-06-02 15:19] LABS: BASO % 0.7 % (0.0-1.0); EOS # 0.1 10^3/uL (0.0-0.5); EOS % 2.2 % (0.0-3.0); HEMATOCRIT 42.1 % (36.0-47.0); HEMOGLOBIN 13.6 g/dl (12.0-15.5); LYMPH % 33.4 % (24.0-44.0); MEAN CORPUSCULAR HGB CONC 32.3 g/dl (32.0-36.5); MEAN CORPUSCULAR VOLUME 92.9 fl (80.0-96.0); MONO # 0.9 10^3/uL (0.0-0.8); MONO % 14.1 % (0.0-5.0); NEUTROPHILS % 49.4 % (36.0-66.0); PLATELET COUNT, AUTOMATED 261 10^3/uL (150-450); RED BLOOD COUNT 4.53 10^6/uL (4.00-5.40)
[2020-06-02 15:57] LABS: ALBUMIN 4.3 GM/DL (3.2-5.2); ALT/SGPT 19 U/L (12-78); BILIRUBIN,TOTAL 0.4 MG/DL (0.2-1.0); BLOOD UREA NITROGEN 16 MG/DL (7-18); CALCIUM LEVEL 9.2 MG/DL (8.5-10.1); CARBON DIOXIDE LEVEL 28 MEQ/L (21-32); CHLORIDE LEVEL 108 MEQ/L (98-107); CHOLESTEROL LEVEL 216 MG/DL (<200); CHOLESTEROL RISK RATIO 3.483 (<5); CREATININE FOR GFR 0.72 MG/DL (0.55-1.30); FREE T4 0.98 NG/DL (0.76-1.46); GLOMERULAR FILTRATION RATE > 60.0 (>60); GLUCOSE, FASTING 80 MG/DL (70-100); HDL CHOLESTEROL 62 MG/DL (>40); LDL CHOLESTEROL 139 MG/DL (<100); NON-HDL-C 154 MG/DL; POTASSIUM SERUM 4.6 MEQ/L (3.5-5.1); SODIUM LEVEL 140 MEQ/L (136-145); TOTAL PROTEIN 7.4 GM/DL (6.4-8.2); TRIGLYCERIDES LEVEL 76 MG/DL (<150)
[2020-06-02 15:59] LABS: VITAMIN B12 LEVEL 380 PG/ML (247-911)
[2020-06-02 16:00] LABS: FOLATE 17.3 NG/ML (>5.4)
== END ==
LOC: M SFHCPLAZ 11:18
PROVIDERS: ATTEND Nurse Practitioner Family
DX: G43.909 Migraine, unspecified, not intractable, without status migrainosus (principal); E78.5 Hyperlipidemia, unspecified; F41.9 Anxiety disorder, unspecified; E55.9 Vitamin D deficiency, unspecified

== ENCOUNTER → 2021-06-16 | Outpatient (CLI) | payer OTHER | LOC: M PLAIMG 09:32 | DX: M51.26 Other intervertebral disc displacement, lumbar region (principal) ==

== ENCOUNTER → 2021-08-17 | Outpatient (REF) | payer OTHER | LOC: M LAB REF 12:58 | PROVIDERS: ATTEND Orthopaedic Surgery | DX: R22.42 Localized swelling, mass and lump, left lower limb (principal); Z96.652 Presence of left artificial knee joint; M25.562 Pain in left knee ==

== ENCOUNTER → 2022-01-06 | Outpatient (REF) | payer OTHER ==
[2022-01-06 13:00] LABS: HEMATOCRIT 42.5 % (36.0-47.0); HEMOGLOBIN 13.9 g/dl (12.0-15.5); MEAN CORPUSCULAR HEMOGLOBIN 29.8 pg (27.0-33.0); MEAN CORPUSCULAR HGB CONC 32.7 g/dl (32.0-36.5); MEAN CORPUSCULAR VOLUME 91.2 fl (80.0-96.0); PLATELET COUNT, AUTOMATED 246 10^3/uL (150-450); RED BLOOD COUNT 4.66 10^6/uL (4.00-5.40); WHITE BLOOD COUNT 7.3 10^3/uL (4.0-10.0)
[2022-01-06 13:45] LABS: ALBUMIN 4.1 GM/DL (3.2-5.2); ALT/SGPT 16 U/L (12-78); BILIRUBIN,TOTAL 0.4 MG/DL (0.2-1.0); BLOOD UREA NITROGEN 17 MG/DL (7-18); CARBON DIOXIDE LEVEL 27 MEQ/L (21-32); CHLORIDE LEVEL 106 MEQ/L (98-107); CREATININE FOR GFR 0.74 MG/DL (0.55-1.30); GLOMERULAR FILTRATION RATE > 60.0 (>60); GLUCOSE, FASTING 80 MG/DL (70-100); POTASSIUM SERUM 4.2 MEQ/L (3.5-5.1); SODIUM LEVEL 137 MEQ/L (136-145); TOTAL PROTEIN 7.6 GM/DL (6.4-8.2)
[2022-01-06 13:46] LABS: FERRITIN 15 NG/ML (8-252); FREE T4 0.96 NG/DL (0.76-1.46); IRON (FE) 76 UG/DL (50-170); PERCENT SATURATION 21.1 % (13.2-45.0); TOTAL IRON BINDING CAPACITY 360 UG/DL (250-450)
== END ==
LOC: M SFHCADAM 10:01
PROVIDERS: ATTEND Physician Assistant
DX: N92.0 Excessive and frequent menstruation with regular cycle (principal); R63.5 Abnormal weight gain

== ENCOUNTER → 2022-02-14 | Outpatient (CLI) | payer OTHER | LOC: M WHC 09:57 | PROVIDERS: ATTEND Physician Assistant | DX: Z80.3 Family history of malignant neoplasm of breast (principal) ==

== ENCOUNTER → 2022-06-16 | Outpatient (CLI) | payer OTHER | LOC: M WHC 10:34 | PROVIDERS: ATTEND Specialist | DX: N92.6 Irregular menstruation, unspecified (principal) ==

== ENCOUNTER → 2022-07-24 | Outpatient (CLI) | payer OTHER ==
[~2022-07-24] MED LIST changes: +APPLCAP PO; +EXCETAB32 PO; +SUPER GREENS PO; +VITA-243 PO; +ZINC50TA34 PO
== END ==
LOC: M LABSMTC 09:33
PROVIDERS: ATTEND Anesthesiology
DX: Z01.818 Encounter for other preprocedural examination (principal)

== ENCOUNTER 2022-07-28 08:04 | Day surgery (SDC) | payer OTHER ==
[~2022-07-28] VITALS: Ht 175.3 cm; Wt 83.8 kg
[~2022-07-28 08:04] MED LIST changes: +ceFAZolin SOD 2 GM in IV 1 EA IV ONE
[2022-07-28 08:43] LABS: HEMOGLOBIN 13.5 g/dl (12.0-15.5); MEAN CORPUSCULAR HGB CONC 32.1 g/dl (32.0-36.5); MEAN CORPUSCULAR VOLUME 90.3 fl (80.0-96.0); PLATELET COUNT, AUTOMATED 270 10^3/uL (150-450); RED BLOOD COUNT 4.65 10^6/uL (4.00-5.40); WHITE BLOOD COUNT 6.2 10^3/uL (4.0-10.0)
[2022-07-28] MEDS ORDERED: ROCURONIUM BROMIDE 50MG/5ML VIAL As Ordered ONE (08:43)
[2022-07-28] MEDS ORDERED: ONDANSETRON 4MG 2ML VIAL As Ordered ONE (08:43)
[2022-07-28] MEDS ORDERED: fentaNYL 250 MCG/5 ML INJECTION As Ordered ONE (08:43)
[2022-07-28] MEDS ORDERED: METOCLOPRAMIDE INJ 10MG/2ML VIAL As Ordered ONE (08:43)
[2022-07-28] MEDS ORDERED: HYDROmorphone HCL 2MG/ML 1ML VIAL As Ordered ONE (08:43)
[2022-07-28] MEDS ORDERED: MIDAZOLAM INJ 2MG/2ML VIAL As Ordered ONE (08:43)
[2022-07-28] MEDS ORDERED: propofoL 200 MG/20 ML VIAL As Ordered ONE (08:43)
[2022-07-28] MEDS ORDERED: SUGAMMADEX SODIUM 500 MG/5 ML VIAL (BRIDION) As Ordered ONE (08:43)
[2022-07-28] MEDS ORDERED: KETOROLAC 60MG 2ML VIAL As Ordered ONE (08:43)
[2022-07-28] MEDS ORDERED: LIDOCAINE 2% 100MG/5ML SDV (FOR ANES.) As Ordered ONE (08:43)
[2022-07-28] MEDS ORDERED: OXYC1TAB23 PO (09:20)
[2022-07-28] MEDS ORDERED: BUPIVACAINE HCL 0.25% 10ML VIAL As Ordered ONE (09:24)
[2022-07-28] MEDS ORDERED: LR 1,000 ML IV SCH ×2 (11:20→11:55)
[2022-07-28] MEDS ORDERED: fentaNYL 100 MCG/2 ML INJECTION IV PRN (11:20)
[2022-07-28] MEDS ORDERED: ONDANSETRON 4MG 2ML VIAL IV PRN (11:20)
[2022-07-28] MEDS ORDERED: PROMETHAZINE 25MG/ML 1ML VIAL IV PRN (11:45)
[2022-07-28] MEDS ORDERED: IBUP-1022 PO (11:46)
[2022-07-28] MEDS ORDERED: PERCOCET 5MG/325MG TAB PO PRN (12:00)
[2022-07-28] MEDS ORDERED: PERCOCET 5MG/325MG TAB PO STA (13:03)
[2022-07-28 13:35] VITALS: BP 118/68
== END 2022-07-28 13:42 | disposition home or self-care (01) ==
LOC: M SDC 08:04
PROVIDERS: ATTEND Specialist
DX: N92.0 Excessive and frequent menstruation with regular cycle (principal); D25.9 Leiomyoma of uterus, unspecified; G43.909 Migraine, unspecified, not intractable, without status migrainosus; Z87.891 Personal history of nicotine dependence; Z79.899 Other long term (current) drug therapy; Z88.0 Allergy status to penicillin; Z88.1 Allergy status to other antibiotic agents; Z91.040 Latex allergy status
CPT/HCPCS: 36415; 58571; 85027; 86850; 86900; 86901; 88307; J1100; J2405; S2900

== ENCOUNTER → 2022-12-27 | Outpatient (CLI) | payer OTHER ==
[~2022-12-27] MED LIST changes: -ceFAZolin SOD 2 GM in IV 1 EA IV ONE
== END ==
LOC: M RAD 13:32
PROVIDERS: ATTEND Family Medicine
DX: M79.89 Other specified soft tissue disorders (principal)

== ENCOUNTER 2023-10-29 07:51 | Emergency (ER) | payer OTHER ==
[~2023-10-29] VITALS: Ht 175.3 cm; Wt 88.4 kg
[2023-10-29] MEDS ORDERED: GNP650TA8 PO (08:00)
[2023-10-29 08:44] LABS: BASO % 0.5 % (0.0-1.0); EOS # 0.1 10^3/uL (0.0-0.5); EOS % 1.8 % (0.0-3.0); HEMOGLOBIN 12.8 g/dl (12.0-15.5); LYMPH # 2.4 10^3/uL (1.5-5.0); MEAN CORPUSCULAR HEMOGLOBIN 29.1 pg (27.0-33.0); MEAN CORPUSCULAR HGB CONC 32.8 g/dl (32.0-36.5); MEAN CORPUSCULAR VOLUME 88.6 fl (80.0-96.0); MONO % 13.1 % (2.0-8.0); NEUTROPHILS # 3.9 10^3/uL (1.5-8.5); NEUTROPHILS % 52.3 % (36.0-66.0); PLATELET COUNT, AUTOMATED 263 10^3/uL (150-450); WHITE BLOOD COUNT 7.4 10^3/uL (4.0-10.0)
[2023-10-29 09:05] LABS: LIPASE 36 U/L (12-53)
[2023-10-29 09:07] LABS: ALKALINE PHOSPHATASE 47 U/L (46-116); ALT/SGPT 16 U/L (7.0-40); AST/SGOT 14 U/L (<34); BILIRUBIN,DIRECT < 0.1 MG/DL (<0.4); BILIRUBIN,TOTAL 0.3 MG/DL (0.3-1.2); BLOOD UREA NITROGEN 14 MG/DL (9-23); CALCIUM LEVEL 8.7 MG/DL (8.5-10.1); CARBON DIOXIDE LEVEL 27 MMOL/L (20-31); CHLORIDE LEVEL 106 MMOL/L (98-107); CREATININE FOR GFR 0.64 MG/DL (0.55-1.30); GLOMERULAR FILTRATION RATE > 60.0 (>60); GLUCOSE, FASTING 86 MG/DL (60-100); POTASSIUM SERUM 3.9 MMOL/L (3.5-5.1); SODIUM LEVEL 140 MMOL/L (136-145); TOTAL PROTEIN 6.6 G/DL (5.7-8.2)
[2023-10-29 09:14] VITALS: BP 137/83; TEMP 97.7; O2SAT 99
[2023-10-29 09:32] LABS: HCG, SERUM QUALITATIVE NEGATIVE (NEGATIVE)
[2023-10-29] MEDS: ONDANSETRON 4MG 2ML VIAL IV ONE (09:45)
[2023-10-29] MEDS: KETOROLAC 30 MG/ML 1ML VIAL IV ONE (09:45)
[2023-10-29] MEDS: NS 1,000 ML IV ONE (09:45)
[2023-10-29] MEDS ORDERED: MACR100C43 PO (10:58)
[2023-10-29] MEDS ORDERED: METH-1165 PO (10:58)
[2023-10-29] MEDS: NITROFURANTOIN (MACROBID) 100 MG CAP PO ONE (11:00)
[2023-10-29] MEDS: LIDOCAINE 5% (LIDODERM) PATCH TD ONE (11:00)
== END 2023-10-29 11:15 | disposition home or self-care (01) ==
LOC: M ED 07:51
DX: R10.9 Unspecified abdominal pain (principal); Z88.1 Allergy status to other antibiotic agents; Z88.8 Allergy status to other drugs, medicaments and biological substances; Z91.040 Latex allergy status; Z91.09 Other allergy status, other than to drugs and biological substances; Z79.1 Long term (current) use of non-steroidal anti-inflammatories (NSAID); Z79.899 Other long term (current) drug therapy
CPT/HCPCS: 74176; 80048; 80076; 81001; 83690; 84703; 85025; 96374; 99284; J1885; J2405

== ENCOUNTER → 2024-09-23 | Outpatient (CLI) | payer OTHER ==
[~2024-09-23] MED LIST changes: +GNP650TA8 PO; +MACR100C43 PO; +METH-1165 PO
== END ==
LOC: M WHC 12:57
PROVIDERS: ATTEND Specialist
DX: N63.41 Unspecified lump in right breast, subareolar (principal); Z80.3 Family history of malignant neoplasm of breast; R92.343 Mammographic extreme density, bilateral breasts; N60.11 Diffuse cystic mastopathy of right breast; N60.12 Diffuse cystic mastopathy of left breast; N63.20 Unspecified lump in the left breast, unspecified quadrant
CPT/HCPCS: 76642; 77066; G0279

== ENCOUNTER → 2024-10-06 | Outpatient (CLI) | payer OTHER ==
[2024-10-06 14:12] VITALS: TEMP 98.7
[2024-10-06 15:30] VITALS: BP 128/82; O2SAT 99
== END ==
LOC: M WHCPRO 13:43
PROVIDERS: ATTEND Specialist
DX: R92.8 Other abnormal and inconclusive findings on diagnostic imaging of breast (principal); N63.14 Unspecified lump in the right breast, lower inner quadrant; N63.22 Unspecified lump in the left breast, upper inner quadrant